=== PATIENT | male | born 1940 | race Caucasian/White ===

== ENCOUNTER 2018-06-19 11:42 | Inpatient (IN) ==
[~2018-06-19 11:42] MED LIST: Metoprolol Tartrate 25 MG Tablet PO SCH
[2018-06-19 12:21] LABS: Baso % (Auto) 0.6 % (0.0-2.0); Eos # (Auto) 0.2 th/mm3 (0.0-0.4); Eos % (Auto) 2.5 % (0.0-4.0); Hematocrit 42.1 % (39.0-51.0); Hemoglobin 13.9 gm/dL (13.0-17.0); Lymph % (Auto) 25.3 % (9.0-44.0); Mean Corpuscular HGB Conc 33.1 % (32.0-36.0); Mean Corpuscular Hemoglobin 30.1 pg (27.0-34.0); Mean Corpuscular Volume 90.9 fL (80.0-100.0); Mean Platelet Volume 8.9 fL (7.0-11.0); Mono # (Auto) 0.9 th/mm3 (0.0-0.9); Mono % (Auto) 11.6 % (0.0-8.0); Neut # (Auto) 4.7 th/mm3 (1.8-7.7); Platelet Count 235 th/mm3 (150-450); Red Blood Count 4.63 mil/mm3 (4.50-5.90); Red Cell Distribution Width 13.7 % (11.6-17.2); White Blood Count 7.8 th/mm3 (4.0-11.0)
[2018-06-19] MEDS ORDERED: Sod Chloride 0.9% Inj 1,000 ML IV.SIG SCH (12:30)
[2018-06-19 12:32] LABS: Activated Partial Thrombo Time 24.8 sec (24.3-30.1); Prothrombin Time 10.5 sec (9.8-11.6)
[2018-06-19 12:37] LABS: Calcium 8.9 mg/dL (8.5-10.1); Carbon Dioxide 28.1 meq/L (21.0-32.0); Potassium 4.3 meq/L (3.5-5.1)
[2018-06-19] MEDS ORDERED: fentaNYL Citrate Inj 100 MCG/2 ML Ampul ONE (13:31)
[2018-06-19] MEDS ORDERED: Heparin 10,000 UNITS/10 ML Vial (for IV use) ONE (13:32)
[2018-06-19] MEDS ORDERED: Heparin/NS PF Inj 1,000 ML ONE (13:39)
--- NOTE | 2018-06-19 14:32 | CATHPROC ---
Patient Name: Michael Alva Study #: [id number] Initial MD: Robson Self Date of : 1940 Study Date: 06/19/2018 Cardiac Catheterization Report 06/19/2018 2:31:53 PM Financial #: [id number] 1 of 10 Patient Name: Michael Alva Study #: [id number] Initial MD: Robson Self Date of : 1940 Study Date: 06/19/2018 Entire Case Report Patient Information Patient Name Michael Alva Date of 1940 Age 77 years Financial # [id number] Gender M AlternateID Lab Number 5 Room Number DC07 Height (in) 67.0 Height (cm) 170.2 BSA 1.88 Weight (lbs) 167.4 Weight (kg) 76.1 Patient Address/Phone Number Home Address [facility] [phone] [facility] [phone] Study Information Study Number Admission Scheduled Start Study Start [id number] Jun 19 2018 11:42AM 06/19/2018 Jun 19 2018 1:26PM [place] [facility] Cardiac Catheterization Admit Source Facility Department [facility] - Manager Community Physician and Clinical Staff Initial Robson Buckley Mental Health Clinician Ana Cristina Cueto,RN Mental Health Clinician Andrés Zavala,RN Recorder Angeline Gutierrez,KIMBERLY Recorder Merna Ocampo,RT(R) Scrub Boni Dominguez,RT(R) Procedures Performed Procedure Location (Site) Vessel Name Coronary Angiograms LCA Left Coronary Coronary Angiograms RCA Right Coronary Wire insertion Radial (right) Radial Art. 06/19/2018 2:31:53 PM Financial #: [id number] 2 of 10 Patient Name: Michael Alva Study #: [id number] Initial MD: Robson Self Date of : 1940 Study Date: 06/19/2018 Equipment Time Tenter Description Size Mfg Part Number Used/Scraped TRANSDUCER, TRUWAVE [id number] 13:46 ROACH CHACON * Used W/PARAMJIT *[id number] 14:09 [employer] AR MOD CATHETER FR 5 [id number] Used TIG 4.0 GUIDE CATHETER [id number] 13:57 [employer] FR 6 Used CONVEY *[id number] 534-545T *8364148 534-518T *1545349 534-542T *[id number] 744721 13:46 MALLINCKRODT SYRINGE, ANGIOMAT 150ML 150ML *[id number]/833523 Used 2SUB MEDICAL CONCEPT DRAPE, RADIAL FEMORAL FULL 13:46 * D2355 *4541387 Used DEVELOPMENT BODY [id number] 13:46 [employer] BLANKET,WARM AIR CCL * Used *[id number] 13:46 [employer] PACK, CCL CUSTOM * Used *3131195 13:46 [employer] SUPPORT, ARTERIAL ADULT 65269 *7196554 Used [id number] 13:46 MEDLINE PACER PEN, SKIN DUAL W/ RULER * Used *[id number] [id number] 13:46 MEDLINE PACER PEN, SKIN DUAL W/ RULER * Used *6728694 14:06 [employer] JR 5.0 DXTERITY CATHETER FR 5 [id number] Used BAND, RADIAL COMPRESSION TR [id number] 14:17 [employer] MEDICAL 24CM Used SHORT 24 *[id number] SHEATH, FR6 RADIAL PRELUDE 13:46 [employer] MEDICAL FR 6 [id number] Used EASE 11CM [id number] 13:46 [employer] MEDICAL WIRE, EXCHANGE 260CM 3MMJ 260CM Used *[id number] 13:46 [employer] MANIFOLD, 4 PORT * Used *5051734 13:46 [employer] OMNIPAQUE, 350 MG, 150ML 150ML [id number] Used WIRE, ANGLE GLIDE STIFF .035 [id number] 13:58 [employer]/SHELLY 260CM Used 260CM *[id number] WIRE, ANGLE GLIDE STIFF .035 [id number] 13:59 [employer]SHELLY 260CM Used 260CM *[id number] Equipment Model, Serial, Lot Number and Expiration Data Description Model Number Serial Number Lot Number Expiration Date AR MOD CATHETER [id number] 01-23-2020 06/19/2018 2:31:53 PM Financial #: [id number] Patient Name: Michael Alva Study #: [id number] Initial MD: Robson Self Date of : 1940 Study Date: 06/19/2018 Insurance Information Insurance Payor Private Health Insurance Third Republican Third Republican Number [facility] FHCMCRH[facility] History: Current Medications Medication Dosage/Unit Route Frequency Last Date/Time Taken ASA 81 mg Oral Daily 06/18/2018 CARVEDILOL 3.125 mg Oral Daily 06/18/2018 LIPITOR 40 mg Oral Daily 06/18/2018 History: Allergies Allergy Reaction temazepam Hallucinations History: Risk Factors Dyslipidemia Previous NM Previous Heart Failure Yes Yes Yes Prior PCI Prior PCIDate Yes 12/17/2013 Diabetes Yes Labs Hgb (g/dl) Hct (%) WBC (l/cumm) Platelets (thousands) 11.60-17.00 35.00-51.00 4.00-11.00 150.00-450.00 13.9 42.1 7.8 235 Glucose (mg/dl) BUN (mg/dl) Creatinine (mg/dl) BUN:Creatinine (1:x) 74.00-106.00 7.00-18.00 0.50-1.30 10.00-20.00 132 25 1.1 22.7 Na (meq/l) K (meq/l) 136.00-145.00 3.50-5.10 139 4.3 INR (PTT:PT) 0.90-1.10 1 Medication 06/19/2018 2:31:53 PM Financial #: [id number] 4 of 10 Patient Name: Michael Alva Study #: [id number] Initial MD: Robson Self Date of : 1940 Study Date: 06/19/20 18 Medication Total Dose (Bolus/Oral) Medication Total Dosage/Unit 1% XYLOCAINE 20 mL FENTANYL 50 mcg RADIAL COCKTAIL 5 mL (Bolus) Medications (Bolus/Oral) Medication Time Given Dosage/Unit Administered By Reason FENTANYL 06/19/2018 1:52:26 PM 50 mcg Andrés Zavala As per physicians fabrizio bal order 50 mcg FENTANYL given in lab by Andrés Zavala, RN in Left Forearm via Peripheral IV. Ordered by Robson Self. Reason: As per physicians verbal order. 1% XYLOCAINE 06/19/2018 1:54:04 PM 20 mL Robson Self 20 mL 1% XYLOCAINE given in lab by Robson Self in Right Radial via Subcutaneous. Ordered by Chris Self. Ntg 200mcg Verapamil 2.5mg Heparin RADIAL COCKTAIL 06/19/2018 1:55:28 PM 5 mL (Bolus) Robson Self 2000U 5 mL (Bolus) RADIAL COCKTAIL given in lab by Robson Self via Radial. Using [Solution Name]. Ordered by Robson Self. Reason: Ntg 200mcg Verapamil 2.5mg Heparin 2000U. Medication (Drip) Medication Time Given Dosage/Unit Concentration/Unit Diluent (ml) Solution IV Solutions 06/19/2018 1:26:51 PM 0 mL (IV) NaCl .9 IV Solutions given in lab by Andrés Zavala RN in Left Forearm via Peripheral IV. Pump/Drip Flow = 30 ml/hr using NaCl .9. Ordered by Robson Self. Reason: As per physicians verbal order. 06/19/2018 2:31:53 PM Financial #: [id number] 5 of 10 Patient Name: Michael Alva Study #: [id number] Initial MD: Robson Self Date of : 1940 Study Date: 06/19/2018 Initial Case Assessment Cardiovascular Rhythm Chest Pain NSR 0 Edema Present Skin color Skin None Normal Warm Dry Circulatory - Right Pulses Dorsalis Pedis Femoral Radial 3 3 3 Scale (0,1,2,3,4,d) Circulatory - Left Pulses Dorsalis Pedis Femoral Radial 3 3 3 Scale (0,1,2,3,4,d) Circulatory - Lower Extremities Color Lower Right Color Lower Left Normal Normal Neurological State Oriented to time-place- Alert Moves all extremities person Respiration - General Respiration Rate (B/min) 16 06/19/2018 2:31:53 PM Financial #: [id number] 6 of 10 Patient Name: Michael Alva Study #: [id number] Initial MD: Robson Self Date of : 1940 Study Date: 06/19/2018 Vitals Summary Pain Time HR NIBP SpO2 Resp Temp EtCO2 Apnea Deepak Chang Comment Level 13:31:46 70 145/81 97.0 0 13:36:45 73 144/79 97.0 2 13:41:44 67 134/75 98.0 24 13:46:45 68 135/68 98.0 0 13:51:44 66 137/68 98.0 7 13:56:43 78 104/66 98.0 0 14:01:38 73 117/64 94.0 11 14:06:41 70 124/67 97.0 14 14:11:42 68 127/66 97.0 23 14:16:45 76 120/65 97.0 13 14:21:44 66 102/61 97.0 13 Chronological Log Time Study Chronological Log 13:24:20 Patient arrived via Bed. 13:24:24 Patient Name, D.O.B, / Armband Verified By R.N. 13:24:28 Consent signed by the physician and the patient and verified by the Manager Community staff. 13:25:32 Pre-op and post- op instructions given; patient acknowledges understanding of instructions. 13:25:36 Verbal Stimulation=2 Physical Stimulation=2 Airway=2 Respiration=2 TOTAL=8. (0=absent, 1=li mited, 2=present) 13:26:42 Patient has been NPO for More than 6Hrs. 13:26:44 Skin Breakdown- none 13:26:45 Patient Warmer Placed on the Table. 13:26:46 Zenaida Prominences Protected 13:26:49 A # 20 IV was noted in the Antecubital (left). Grade = 0 IV Solutions given in lab by Andrés Zavala, RN in Left Forearm via Peripheral IV. Pump/Drip Anupam w = 30 ml/hr using NaCl 13:26:51 .9. Ordered by Robson Self. Reason: As per physicians verbal order. 13:30:35 History and physical on the chart. Vitals capture started with the following parameters, Patient=Adult, Interval=5 min, Initial Pr uqvfpu=799 mmHg, 13:31:02 Deflation Rate=5 mmHg, Cuff placed on Left Arm Assessment: Initial Case, Rhythm=NSR, Chest Pain=0, Edema=None, Color=Normal, Skin = Warm, Dry Right Pulses: Jose Ped=3, Femoral=3, Radial=3 Left Pulses: Jose Ped=3, Femoral=3, Radial=3 13:31:08 Lower Right Extremities: Color=Normal Lower Left Extremities: Color=Normal Neurological: State=Alert, Ox3, ROGERS Respiration: Resp=16 B/min 13:31:46 HR=70 bpm, BZCF=889/81 mmhg, SpO2=97.0 %, Resp=0 B/min 13:33:16 Allens test performed on the right radial and ulnar artery. 06/19/2018 2:31:53 PM Financial #: [id number] Patient Name: Michael Alva Study #: [id number] Initial MD: Robson Self Date of : 1940 Study Date: 06/19/2018 13:34:00 Reference ECG taken 13:36:34 Right Radial and groin(s) prepped with 2% chlorhexidine. 13:36:45 HR=73 bpm, JPYU=489/79 mmhg, SpO2=97.0 %, Resp=2 B/min 13:39:25 A sterile drape was appplied after a 3 min prep drying time. 13:41:44 HR=67 bpm, CWYQ=069/75 mmhg, SpO2=98.0 %, Resp=24 B/min 13:43:01 paged 13:43:58 Pressure channel 2 zeroed. 13:44:33 MD responded 13:46:45 HR=68 bpm, UVKU=964/68 mmhg, SpO2=98.0 %, Resp=0 B/min 13:49:51 MD arrived. 13:50:03 Immediate Presedation assesment performed by physician. 13:51:44 HR=66 bpm, MYUY=746/68 mmhg, SpO2=98.0 %, Resp=7 B/min 50 mcg FENTANYL given in lab by Andrés Zavala RN in Left Forearm via Peripheral IV. Ordered by Robson Self. 13:52:26 Reason: As per physicians verbal order. Time Out. Correct patient, correct procedure, correct physician, labs, allergies, and equipment verified with cleaner laboratory equipment 13:53:42 team present. Fire risk assesment completed (see hard stop sheet for coding). Time Out Conc urred by and individual staff in procedure. 13:54:04 Case Start 13:54:04 20 mL 1% XYLOCAINE given in lab by Robson Self in Right Radial via Subcutaneous. Ordered b Robson Del Valle. 13:55:17 Access site was Right Radial Artery . A SHEATH, FR6 RADIAL PRELUDE EASE 11CM FR 6 was advanced into the Radial (right) using the July fied Seldinger 13:55:26 technique. 5 mL (Bolus) RADIAL COCKTAIL given in lab by Robson Self via Radial. Using [Solution Name]. Or dered by Aramis 13:55:28 Robson. Reason: Ntg 200mcg Verapamil 2.5mg Heparin 2000U. 13:55:34 A WIRE, EXCHANGE 260CM 3MMJ 260CM was inserted via Radial (right). A TIG 4.0 GUIDE CATHETER CONVEY FR 6 was advanced over a wire. OMNIPAQUE, 350 MG, 150ML 150ML w as used 13:56:22 for injections. 13:56:43 HR=78 bpm, DDGB=280/66 mmhg, SpO2=98.0 %, Resp=0 B/min 13:57:26 260 J Wire removed 13:58:22 A WIRE, ANGLE GLIDE STIFF .035 260CM 260CM was inserted via Radial (right). 13:58:39 Wire removed 13:59:44 The LCA was injected and visualized at various angles. OMNIPAQUE, 350 MG, 150ML 150ML used . 14:01:38 HR=73 bpm, XAHI=425/64 mmhg, SpO2=94.0 %, Resp=11 B/min 14:02:02 A WIRE, EXCHANGE 260CM 3MMJ 260CM was inserted via Radial (right). 14:04:38 The LCA was injected and visualized at various angles. OMNIPAQUE, 350 MG, 150ML 150ML used . 14:06:41 HR=70 bpm, MGXT=657/67 mmhg, SpO2=97.0 %, Resp=14 B/min After removing the current catheter a JR 5.0 DXTERITY CATHETER FR 5 was advanced over a WIRE, E XCHANGE 260CM 14:06:59 3MMJ 260CM. 14:07:27 Wire removed After removing the current catheter a AR MOD CATHETER FR 5 was advanced over a WIRE, EXCHANGE 2 60CM 3MMJ 14:10:06 260CM. 14:11:42 HR=68 bpm, MSMD=362/66 mmhg, SpO2=97.0 %, Resp=23 B/min 06/19/2018 2:31:53 PM Financial #: [id number] 8 of 10 Patient Name: Michael Alva Study #: [id number] Initial MD: Robson Self Date of : 1940 Study Date: 06/19/2018 After removing the current catheter a AL 1 INFINITI CATHETER FR 5 was advanced over a WIRE, EX CHANGE 260CM 14:12:00 3MMJ 260CM. 14:13:39 The RCA was injected and visualized at various angles. OMNIPAQUE, 350 MG, 150ML 150ML use d. After removing the current catheter a MPA-2 INFINITI CATHETER FR 5 was advanced over a WIRE, E XCHANGE 260CM 14:13:54 3MMJ 260CM. Recorded Pressure: LV, HR=70, Condition=Condition 1 14:15:50 (Left Ventricle) LV 146/11 14:16:45 HR=76 bpm, EANT=398/65 mmhg, SpO2=97.0 %, Resp=13 B/min 14:16:47 Catheter(s) removed without difficulty 14:16:53 Case End (Physician broke scrub) 14:16:54 Holding Area notified of successful intervention. 14:16:55 Bedside Report will be given. 14:19:31 Sheath removed; pressure applied to access site. Radial Compression Device Used. 10 mLs of air placed in BAND, RADIAL COMPRESSION TR SHORT 24 2 4CM. Affected 14:19:32 hand 97 % O2 saturation. 14:21:44 HR=66 bpm, UNON=369/61 mmhg, SpO2=97.0 %, Resp=13 B/min 14:22:59 No case complications noted. 14:23:00 Cine recording checked. 14:24:17 Vitals capture stopped. 14:26:12 Patient moved to [facility] transported back to DOCU in stable condition with RN and t each accompanying. Recorded Pressures: Condition 1 Time Chamber Pressure Manual Override (*) 14:15:50 LV 146/11/21 s/bd/ed End Study - Contrast Media Used In Study Contrast Total Opened (mL) Total Used (mL) Total Wasted (mL) Omnipaque 150 75 75 End Study - Maximum Contrast Load Max Contrast Load (mL) 345.9 End Study - Radiation Exposure Fluoro Time (minutes) 8.5 06/19/2018 2:31:53 PM Financial #: [id number] Patient Name: Michael Alva Study #: [id number] Initial MD: Robson Self Date of : 1940 Study Date: 06/19/2018 End Study - Patient Disposition Complications Transferred To Interventional Outcome No Telemetry Bed No attempt made 06/19/2018 2:31:53 PM Financial #: [id number]
[2018-06-19] MEDS: Sod Chloride 0.9% Inj 1,000 ML IV.CONT SCH (14:45)
[2018-06-19] MEDS ORDERED: Iohexol 350 MG/ML 100 ML Vial (for Cath Lab) IV.SIG ONE (14:53)
[2018-06-19] MEDS ORDERED: Dextrose 50% in Water 50 ML Vial IV.PUSH PRN (16:47)
[2018-06-19] MEDS ORDERED: Insulin Regular (For Infusion) 100 UNIT in Sodium Chlor 0.9% Inj 99 ML IV.CONT PRN (16:47)
[2018-06-19] MEDS ORDERED: Sodium Chlor 0.9% Inj 77.5 ML, Papaverine Inj 60 MG, Nitroglycerin Inj 100 MCG, dilTIAZ... IRRIGATION SCH ×3 (17:00)
[2018-06-19] MEDS ORDERED: Sodium Chloride 0.9% Irr Bot 500 ML, ceFAZolin Inj 500 MG IRRIGATION SCH ×2 (17:00)
[2018-06-19] MEDS ORDERED: ceFAZolin Inj 2,000 MG in Sodium Chlor 0.9% Inj 80 ML IV.SIG SCH (17:00)
[2018-06-19] MEDS ORDERED: Chlorhexidine 4% Topical 120 APPLIC/120 ML Bottle TOPICAL SCH (17:00)
[2018-06-19] MEDS: Mupirocin 2% Nasal Oint Topical Syringe EACH NARE SCH (20:32)
[2018-06-20] MEDS: Sod Chloride 0.9% Inj 1,000 ML IV.CONT SCH ×3 (03:52→20:30)
[2018-06-20] MEDS: Glimepiride 2 MG Tablet PO SCH (06:42)
[2018-06-20] MEDS: Mupirocin 2% Nasal Oint Topical Syringe EACH NARE SCH ×2 (08:20→20:32)
[2018-06-20 09:34] LABS: Bilirubin,Urine Negative (Negative); Clarity,Urine Clear (Clear); Color,Urine Yellow (Yellw/Straw); Glucose,Urine (UA) 150 mg/dL (Negative); Leukocyte Esterase,Urine Negative (Negative); Mucus,Urine Few /lpf (Occasional); Nitrite,Urine Negative (Negative)
--- NOTE | 2018-06-20 09:36 | P.PNCA ---
Subjective Interval history: Denies angina, dyspnea, right wrist pain. Slept fairly well. Physical Exam Vital signs: Vital Signs 06/19/18 12:14 06/19/18 15:11 06/19/18 16:00 Temperature 97.7 F 97.3 F L Pulse Rate 73 60 70 Respiratory Rate 18 20 Blood Pressure 124/89 141/64 H Pulse Oximetry 98 98 06/19/18 17:00 06/19/18 18:00 06/19/18 20:25 Temperature Pulse Rate 64 63 68 Respiratory Rate Blood Pressure Pulse Oximetry 06/19/18 21:00 06/19/18 22:00 06/19/18 23:00 Temperature 97.7 F Pulse Rate 68 62 71 Respiratory Rate 22 Blood Pressure 118/61 Pulse Oximetry 97 06/20/18 00:00 06/20/18 01:00 06/20/18 02:00 Temperature 98.0 F Pulse Rate 68 70 74 Respiratory Rate 22 Blood Pressure 117/62 Pulse Oximetry 97 06/20/18 03:00 06/20/18 04:00 06/20/18 05:00 Temperature 98.0 F Pulse Rate 72 68 76 Respiratory Rate 22 Blood Pressure 107/54 L Pulse Oximetry 96 06/20/18 06:00 06/20/18 07:00 06/20/18 07:26 Temperature 98.2 F Pulse Rate 70 68 72 Respiratory Rate 16 Blood Pressure 101/58 L Pulse Oximetry 94 L 06/20/18 08:00 06/20/18 09:00 Temperature Pulse Rate 78 72 Respiratory Rate Blood Pressure Pulse Oximetry Intake & Output 06/19/18 06/20/18 06/20/18 18:59 06:59 18:59 Intake Total 240 / 240 1240 / 1240 Output Total 300 / 300 Balance 240 / 240 940 / 940 Weight 76.1 kg Intake: IV 1000 / 1000 NS Inj 1,000 ML @ 100 mls/hr IV 1000 / 1000 .CONT .Q10H [facility] Rx#:[id number] Oral 240 / 240 240 / 240 Output: Urine 300 / 300 Other: Date of Last Bowel Movement 06/19/18 Weight On Admission 76.1 kg - Constitutional no acute distress - Routine Neck Exam Absent: JVD - Routine Respiratory Exam Present: CTA bilaterally - Routine Cardiovascular Exam Present: RRR, S1, S2. Absent: murmur, gallop - Routine Abdominal Exam Present: soft, normoactive bowel sounds. Absent: tenderness, organomegaly - Routine Extremities Exam Absent: cyanosis, clubbing, edema Assessment and Plan - Assessment (1) Coronary artery disease Code(s): I25.10 - Atherosclerotic heart disease of [place] coronary artery without angina pectoris Status: Chronic Plan: Stable overnight. No further angina. Severe 2 vessel CAD by cath. For CABG this Monday. Continue current medical regimen. EF low normal 50% by cath. (2) Hyperlipidemia Code(s): E78.5 - Hyperlipidemia, unspecified Status: Chronic Plan: Continues on statin therapy. Follows with Dr. Roth as outpatient. - Plan Code Status: full code Discussed Condition With: patient and (1) Coronary artery disease Qualifiers: Coronary Disease-Associated Artery/Lesion type: [place] artery [place] vs. transplanted heart: [place] heart Associated angina: with unstable angina Qualified Code(s): I25.110 - Atherosclerotic heart disease of [place] coronary artery with unstable angina pectoris (2) Hyperlipidemia Qualifiers: Hyperlipidemia type: unspecified Qualified Code(s): E78.5 - Hyperlipidemia, unspecified
[2018-06-20] MEDS ORDERED: Dextrose 50% in Water 50 ML Vial IV.PUSH PRN (11:37)
[2018-06-20] MEDS: Insulin NovoLOG Aspart Correctional Sugar Inj SQ SCH ×3 (12:50→20:39)
--- NOTE | 2018-06-20 16:11 | ECHRPT ---
Indication: CHEST PAIN CONCLUSIONS The left ventricular systolic function is mildly reduced with an estimated ejection fraction in the range of 45- 50%. Mild concentric left ventricular hypertrophy. Doppler parameters are consistent with impaired left ventricular relaxtion (grade 1 diastolic dysfun ction). Ascending aorta noted to have significant calcification. Mild mitral valve regurgitation. Probable mild aortic valve stenosis (peak grad 30, mean grad 16, max velocity 2.75, TONYA measured bel ow 1, but most likely due to LVOT measured incorrectly). BP: / HR: Rhythm: MEASUREMENTS (Male / Female) Normal Values Technical Quality: 2D ECHO LV Diastolic Diameter PLAX 4.3 cm 4.2 - 5.9 / 3.9 - 5.3 cm LV Systolic Diameter PLAX 3.4 cm IVS Diastolic Thickness 1.3 cm 0.6 - 1.0 / 0.6 - 0.9 cm LVPW Diastolic Thickness 1.1 cm 0.6 - 1.0 / 0.6 - 0.9 cm LV Relative Wall Thickness 0.6 RV Internal Dim ED PLAX 2.6 cm LVOT Diameter 1.7 cm Aortic Root Diameter 3.1 cm LA Systolic Diameter LX 3.2 cm 3.0 - 4.0 / 2.7 - 3.8 cm LV Ejection Fraction MOD 4C 47.2 % LV Ejection Fraction 4C AL 47.8 % M-MODE Aortic Root Diameter MM 3.6 cm LA Systolic Diameter MM 4.6 cm LA Ao Ratio MM 1.3 AV Cusp Separation MM 1.3 cm DOPPLER AV Peak Velocity 288.5 cm/s AV Peak Gradient 33.3 mmHg AV Mean Gradient 18.5 mmHg AV Velocity Time Integral 61.0 cm AI Peak Velocity 317.0 cm/s AI Peak Gradient 40.2 mmHg AI Pressure Half Time 240.0 ms LVOT Peak Velocity 100.0 cm/s LVOT Peak Gradient 4.0 mmHg LVOT Velocity Time Integral 23.9 cm AV Area Cont Eq vti 0.9 cm AV Area Cont Eq pk 0.8 cm Mitral E Point Velocity 90.3 cm/s Mitral A Point Velocity 126.0 cm/s Mitral E to A Ratio 0.7 LV E' Lateral Velocity 6.1 cm/s Mitral E to LV E' Lateral Ratio 14.9 LV E' Septal Velocity 5.0 cm/s Mitral E to LV E' Septal Ratio 18.2 TR Peak Velocity 198.0 cm/s TR Peak Gradient 15.7 mmHg Right Atrial Pressure 10.0 mmHg Pulmonary Artery Systolic Pressu 25.7 mmHg Right Ventricular Systolic Press 25.7 mmHg PV Peak Velocity 80.5 cm/s PV Peak Gradient 2.6 mmHg FINDINGS LEFT VENTRICLE Normal left ventricular size. Mild concentric left ventricular hypertrophy. The left ventricular systolic function is mildly reduced with an estimated ejection fraction in the range of 45- 50%. There is global left ventricular dysfunction. Doppler parameters are consistent with impaired left ventricular relaxtion (grade 1 diastolic dysfun ction). RIGHT VENTRICLE Normal right ventricular size and systolic function. LEFT ATRIUM The left atrial size is mildly dilated. RIGHT ATRIUM The right atrial size is normal. ATRIAL SEPTUM Normal atrial septal thickness without atrial level shunting by limited color doppler interrogation. AORTA The aortic root and proximal ascending aorta are normal in size on limited imaging. Ascending aorta noted to have significant calcification. MITRAL VALVE Calcification of both mitral valve leaflets. Mild mitral valve regurgitation. Moderate mitral annular calcification. AORTIC VALVE Diffuse calcification of the aortic valve. Trace aortic valve regurgitation. Probable mild aortic valve stenosis (peak grad 30, mean grad 16, max velocity 2.75, TONYA measured bel ow 1, but most likely due to LVOT measured incorrectly). TRICUSPID VALVE There is trace tricuspid valve regurgitation. The estimated pulmonary arterial pressure is 26 mmHg. PULMONARY VALVE Mild pulmonary valve regurgitation. VESSELS The inferior vena cava is normal in size. PERICARDIUM No pericardial effusion. Izt Blackburn DO (Electronically Signed) Final Date:20 June 2018 16:10
[2018-06-20] MEDS: Polyethylene Glycol 3350 17 GM Packet PO SCH ×2 (16:48→17:29)
--- NOTE | 2018-06-20 21:52 | ECG ---
Date Performed: 06/19/2018 Time Performed: 12:18:12 PTAGE: 77 years EKG: Sinus rhythm . Left axis deviation Inferior infarct - age undetermined Abnormal ECG PREVIOUS TRACING : 12/03/2013 05.05 Since the previous tracing, no significant change noted DOCTOR: Ric Diallo Interpretating Date/Time 06/20/2018 21:50:04
[2018-06-21] MEDS: Sod Chloride 0.9% Inj 1,000 ML IV.CONT SCH ×2 (07:22→16:28)
[2018-06-21] MEDS: Insulin NovoLOG Aspart Correctional Sugar Inj SQ SCH ×4 (07:57→21:02)
[2018-06-21] MEDS: Glimepiride 2 MG Tablet PO SCH (08:18)
[2018-06-21] MEDS: Polyethylene Glycol 3350 17 GM Packet PO SCH (08:18)
[2018-06-21] MEDS: Mupirocin 2% Nasal Oint Topical Syringe EACH NARE SCH ×2 (08:18→20:57)
--- NOTE | 2018-06-21 08:29 | P.PNCA ---
Subjective Interval history: No angina, dyspnea, dizziness, palpitations. Slept well. Physical Exam Vital signs: Vital Signs 06/20/18 09:00 06/20/18 10:00 06/20/18 11:00 Temperature 98.3 F Pulse Rate 72 70 67 Respiratory Rate 16 Blood Pressure 120/64 Pulse Oximetry 96 06/20/18 12:00 06/20/18 13:00 06/20/18 14:04 Temperature Pulse Rate 66 66 67 Respiratory Rate Blood Pressure Pulse Oximetry 06/20/18 14:53 06/20/18 15:00 06/20/18 16:00 Temperature 97.8 F Pulse Rate 63 60 62 Respiratory Rate 16 Blood Pressure 111/61 Pulse Oximetry 97 06/20/18 17:00 06/20/18 18:01 06/20/18 19:00 Temperature 97.6 F Pulse Rate 62 75 66 Respiratory Rate 18 Blood Pressure 135/73 Pulse Oximetry 96 06/20/18 20:00 06/20/18 21:00 06/20/18 22:00 Temperature Pulse Rate 70 62 78 Respiratory Rate Blood Pressure Pulse Oximetry 06/20/18 23:00 06/21/18 00:00 06/21/18 01:00 Temperature Pulse Rate 66 58 L 66 Respiratory Rate 18 Blood Pressure Pulse Oximetry 06/21/18 02:00 06/21/18 03:00 06/21/18 04:00 Temperature 97.9 F Pulse Rate 71 65 67 Respiratory Rate 20 Blood Pressure 123/71 Pulse Oximetry 96 06/21/18 05:00 06/21/18 06:00 06/21/18 07:48 Temperature 98.4 F Pulse Rate 63 66 67 Respiratory Rate 18 Blood Pressure 112/65 Pulse Oximetry 95 Intake & Output 06/20/18 06/21/18 06/21/18 18:59 06:59 18:59 Intake Total 942 / 942 480 / 480 Output Total 800 / 800 Balance 942 / 942 -320 / -320 Intake: Oral 942 / 942 480 / 480 Output: Urine 800 / 800 Other: # Voids 4 3 Date of Last Bowel Movement 06/20/18 06/20/18 06/20/18 # Bowel Movements 1 0 - Constitutional no acute distress - Routine Neck Exam Absent: JVD - Routine Respiratory Exam Present: CTA bilaterally - Routine Cardiovascular Exam Present: RRR, S1, S2. Absent: murmur, gallop - Routine Abdominal Exam Present: soft, normoactive bowel sounds. Absent: tenderness, organomegaly - Routine Extremities Exam Absent: cyanosis, clubbing, edema Assessment and Plan - Assessment (1) Coronary artery disease Code(s): I25.10 - Atherosclerotic heart disease of [place] coronary artery without angina pectoris Status: Chronic Plan: Stable since admission. Severe 2 vessel CAD by cath. For CABG in am. Continue current medical regimen. EF low normal 50% by cath. (2) Hyperlipidemia Code(s): E78.5 - Hyperlipidemia, unspecified Status: Chronic Plan: Continues on statin therapy. Follows with Dr. Roth as outpatient. - Plan Code Status: full code Discussed Condition With: patient and (1) Coronary artery disease Qualifiers: Coronary Disease-Associated Artery/Lesion type: [place] artery [place] vs. transplanted heart: [place] heart Associated angina: with unstable angina Qualified Code(s): I25.110 - Atherosclerotic heart disease of [place] coronary artery with unstable angina pectoris (2) Hyperlipidemia Qualifiers: Hyperlipidemia type: unspecified Qualified Code(s): E78.5 - Hyperlipidemia, unspecified
--- NOTE | 2018-06-21 15:06 | P.PNCV ---
- Note Subjective/Hospital Course: sts data discussed with pt RISK SCORES About the STS Risk Calculator Procedure: CAB Only Risk of Mortality: 1.602% Morbidity or Mortality: 12.465% Long Length of Stay: 5.204% Short Length of Stay: 43.848% Permanent Stroke: 0.997% Prolonged Ventilation: 7.609% DSW Infection: 0.396% Renal Failure: 3.329% Reoperation: 5.213% 06/21 pt doing well for surgery in am Objective: Vital Signs - 24 hr 06/20/18 16:00 06/20/18 17:00 06/20/18 18:01 Temperature Pulse Rate 62 62 75 Respiratory Rate Blood Pressure Pulse Oximetry 06/20/18 19:00 06/20/18 20:00 06/20/18 21:00 Temperature 97.6 F Pulse Rate 66 70 62 Respiratory Rate 18 Blood Pressure 135/73 Pulse Oximetry 96 06/20/18 22:00 06/20/18 23:00 06/21/18 00:00 Temperature Pulse Rate 78 66 58 L Respiratory Rate 18 Blood Pressure Pulse Oximetry 06/21/18 01:00 06/21/18 02:00 06/21/18 03:00 Temperature 97.9 F Pulse Rate 66 71 65 Respiratory Rate 20 Blood Pressure 123/71 Pulse Oximetry 96 06/21/18 04:00 06/21/18 05:00 06/21/18 06:00 Temperature Pulse Rate 67 63 66 Respiratory Rate Blood Pressure Pulse Oximetry 06/21/18 07:00 06/21/18 07:48 06/21/18 08:00 Temperature 98.4 F Pulse Rate 65 67 66 Respiratory Rate 18 Blood Pressure 112/65 Pulse Oximetry 95 06/21/18 09:00 06/21/18 10:00 06/21/18 11:00 Temperature Pulse Rate 62 62 62 Respiratory Rate Blood Pressure Pulse Oximetry 06/21/18 11:06 06/21/18 12:00 06/21/18 13:25 Temperature 98.1 F Pulse Rate 67 76 67 Respiratory Rate 18 Blood Pressure 101/61 Pulse Oximetry 97 GENERAL: SKIN: Warm and dry. HEAD: Normocephalic. EYES: No scleral icterus. No injection or drainage. NECK: Supple, trachea midline. No JVD or lymphadenopathy. CARDIOVASCULAR: Regular rate and rhythm without murmurs, gallops, or rubs. RESPIRATORY: Breath sounds equal bilaterally. No accessory muscle use. GASTROINTESTINAL: Abdomen soft, non-tender, nondistended. MUSCULOSKELETAL: No cyanosis, or edema. BACK: Nontender without obvious deformity. No CVA tenderness. Labs: Laboratory Results - last 12 hr 06/21/18 06/21/18 07:56 11:14 POC Glucose 148 H 198 H Result Diagrams: 06/19/18 12:07 06/19/18 12:07 Telemetry: NSR - Plan (1) Diabetes (1) Diabetes Qualifiers: Diabetes mellitus type: type 2
[2018-06-22] MEDS ORDERED: Chlorhexidine Gluconate 2% 1 Pack (2 Cloths) TOPICAL ONE (00:30)
[2018-06-22] MEDS ORDERED: Sodium Chlor 0.9% Inj 500 ML IV.CONT ONE (00:30)
[2018-06-22] MEDS: Sod Chloride 0.9% Inj 1,000 ML IV.CONT SCH ×3 (05:08→22:33)
[2018-06-22] MEDS: Glimepiride 2 MG Tablet PO SCH (07:55)
[2018-06-22] MEDS: Mupirocin 2% Nasal Oint Topical Syringe EACH NARE SCH ×2 (08:53→20:04)
[2018-06-22] MEDS: Polyethylene Glycol 3350 17 GM Packet PO SCH (08:55)
[2018-06-22] MEDS: Insulin NovoLOG Aspart Correctional Sugar Inj SQ SCH ×4 (09:03→22:28)
--- NOTE | 2018-06-22 11:11 | P.PNCV ---
- Note Subjective/Hospital Course: A 77-year-old male patient of Dr. Antwan Mann and also Dr. Self who is known to their [facility] with history of coronary artery disease. He has been experiencing some chest pain, midsternal, radiating to both arms off and on for the past month mainly with exertion, describes it as somewhat feeling like indigestion. He was seen in the office 06/12/2018, and then was brought in for elective cardiac catheterization. Cardiac catheterization showed an ejection fraction of 50%, 30% left main, proximal LAD 90%, the RCA 100%. We were consulted to evaluate for coronary artery bypass grafting. PAST MEDICAL HISTORY: Includes coronary artery disease, ischemic cardiomyopathy. Prior [place], diabetes mellitus type 2, hyperlipidemia. Apparently, he was a nonresponder to Plavix. History of pneumothorax at age 31. He had a chest tube placed back when he had the pneumothorax in 1971. He also has 2 cardiac stents. 06/21 pt doing well for surgery in am 06/22 no chest pain last night for surgery today Objective: Vital Signs - 24 hr 06/21/18 12:00 06/21/18 13:25 06/21/18 14:00 Temperature Pulse Rate 76 67 60 Respiratory Rate Blood Pressure Pulse Oximetry 06/21/18 15:00 06/21/18 15:21 06/21/18 16:18 Temperature 98.3 F Pulse Rate 60 63 67 Respiratory Rate 18 Blood Pressure 128/69 Pulse Oximetry 97 06/21/18 17:15 06/21/18 18:10 06/21/18 19:00 Temperature 97.9 F Pulse Rate 83 70 66 Respiratory Rate 20 Blood Pressure 130/72 Pulse Oximetry 97 06/21/18 20:00 06/21/18 21:00 06/21/18 22:00 Temperature Pulse Rate 66 62 76 Respiratory Rate Blood Pressure Pulse Oximetry 06/21/18 23:00 06/22/18 00:00 06/22/18 01:00 Temperature Pulse Rate 72 61 68 Respiratory Rate Blood Pressure Pulse Oximetry 06/22/18 02:00 06/22/18 03:00 06/22/18 04:00 Temperature 98 F Pulse Rate 62 67 70 Respiratory Rate 22 Blood Pressure 108/62 Pulse Oximetry 94 L 06/22/18 05:00 06/22/18 06:00 06/22/18 07:00 Temperature 98.2 F Pulse Rate 69 62 67 Respiratory Rate 16 Blood Pressure 105/62 Pulse Oximetry 93 L 06/22/18 10:45 Temperature 98.3 F Pulse Rate 66 Respiratory Rate 16 Blood Pressure 107/69 Pulse Oximetry 95 GENERAL: SKIN: Warm and dry. HEAD: Normocephalic. EYES: No scleral icterus. No injection or drainage. NECK: Supple, trachea midline. No JVD or lymphadenopathy. CARDIOVASCULAR: Regular rate and rhythm without murmurs, gallops, or rubs. RESPIRATORY: Breath sounds equal bilaterally. No accessory muscle use. GASTROINTESTINAL: Abdomen soft, non-tender, nondistended. MUSCULOSKELETAL: No cyanosis, or edema. BACK: Nontender without obvious deformity. No CVA tenderness. Labs: Laboratory Results - last 12 hr 06/19/18 06/22/18 06/22/18 16:01 04:40 08:31 POC Glucose 146 H Blood Type A Positive Antibody Screen Negative MTS Gel Crossmatch See Detail 06/22/18 06/22/18 08:31 09:03 POC Glucose 169 H Blood Type Antibody Screen MTS Gel Crossmatch See Detail Result Diagrams: 06/19/18 12:07 06/19/18 12:07 - Plan (1) Diabetes (2) Coronary artery disease (3) Hyperlipidemia (1) Diabetes Qualifiers: Diabetes mellitus type: type 2 (2) Coronary artery disease Qualifiers: Coronary Disease-Associated Artery/Lesion type: [place] artery [place] vs. transplanted heart: [place] heart Associated angina: with unstable angina Qualified Code(s): I25.110 - Atherosclerotic heart disease of [place] coronary artery with unstable angina pectoris (3) Hyperlipidemia Qualifiers: Hyperlipidemia type: unspecified Qualified Code(s): E78.5 - Hyperlipidemia, unspecified
[2018-06-22] MEDS ORDERED: Heparin - SQ 10,000 UNITS/ML Vial ONE (11:33)
[2018-06-22] MEDS ORDERED: MethylPREDNISolone Sod Succinate Inj 125 MG/2 ML Vial ONE (11:33)
[2018-06-22] MEDS ORDERED: Insulin Regular (For Infusion) 100 UNIT in Sodium Chlor 0.9% Inj 99 ML IV.CONT ONE (11:45)
[2018-06-22] MEDS ORDERED: Propofol Inj 500 MG/50 ML Vial IV.SIG ONE (12:58)
[2018-06-22] MEDS ORDERED: Sodium Chlor 0.9% Inj 100 ML IV.CONT ONE (12:58)
[2018-06-22] MEDS ORDERED: Sodium Chlor 0.9% Inj 250 ML IV.CONT ONE (12:58)
[2018-06-22] MEDS ORDERED: Cardioplegic Irr Soln 2,000 ML IRRIGATION ONE (13:02)
[2018-06-22] MEDS ORDERED: Albumin Human 25% Inj 50 ML IV.SIG ONE (13:02)
[2018-06-22] MEDS ORDERED: Calcium Chloride Inj 1 GM/10 ML Syringe ONE (13:03)
[2018-06-22] MEDS ORDERED: Heparin 10,000 UNITS/10 ML Vial (for IV use) ONE (13:04)
[2018-06-22] MEDS ORDERED: Potassium Chlor 40 mEq Premix 80 MEQ/200 ML PIGGYBACK ONE (13:04)
--- NOTE | 2018-06-22 13:22 | P.DCO ---
- Diagnosis (1) Coronary artery disease (2) Hyperlipidemia (3) Diabetes - Home Health Nursing Order: Medical education, Signs/symptoms of disease process, Diabetic education , Wound care and dressing changes, Nursing assessment with vital signs Instructions: Heart and Vascular Surgery patients *Special attention to sternal dressing Mandatory frequency Assess and evaluation, 4 days in a row The next week 3X week 2 times a week for 4 weeks 1 time a week for 5 weeks Schedule Heart and Vascular patients for full 60 day certification period Initial visit Review Open Heart Surgery Discharge Instructions (Sternal precautions, Activity, Elastic hose, Incision care, Driving, Incentive spirometry, Smoking, [place], Work and other) Need Betadine to paint incision Medication reconciliation Importance of follow up care/ check on appointments Make calendar record temperature daily When to call [facility] at Home nurse, review instructions, phone list Incentive Spirometry, demonstration Visit 1- Begin discharge instruction for patient family and/ or caregiver using teach back method- Signs and symptoms of infection Disease characteristics Medicines and side effects Foods and nutrition/ appetite Infection control/ hand washing/ hygiene Visit 2- Continue teaching Discharge instructions- include additional information on smoking cessation , sternal dressing (sternal vac) Visit 3- Continue teaching- Cough and deep breathing, incision monitoring. Choose my plate Visit 4- Continue teaching- Discuss limitations Discuss how they are feeling Discuss progress toward goals Remaining visits- continue teaching and monitoring For any questions please call : Monday 8am-5pm Heart & Vascular Surgery Office ( Dr. Alcocer & Dr. Nair), After Hours / Nights (5pm -8am) Weekends and Holidays Please call [facility] Cardiac Intermediate Care Unit (CIC) Charge Nurse PREVENA Single Use Negative Wound Therapy System Caregiver Instruction Sheet 1. A Prevena dressing system was applied to the chest incision during surgery , to promote wound healing. It works via a suction device (negative pressure wound therapy) to remove low to moderate levels of exudate (drainage) and infectious materials. We recommend that the device stay in place for up to seven days, from day of surgery. 2. Day of Surgery___/ Day of Removal 06/29/18 3. The dressing should only be removed by a health pharmacy care coordinator. Please arrange removal of device to coincide with Home Health visit and or with Nursing staff at Rehab 4. If skin reddening or irritation of skin occurs, or excessive drainage, please notify the Cardiovascular Surgeons office at [phone]. 5. Light showering is permissible; however the pump should be disconnected and placed in safe location, where it will not get wet. The dressing should not be exposed to direct spray or submerged in water. No bath tub / shower only. Ensure the end of the tubing attached to the dressing is facing down so that water does not enter the top of the tube. 6. To remove Prevena dressing: press purple button to turn off device / remove the suction. Then disconnect the tubing from the pump. The fixation strips should be stretched away from the skin and the dressing lifted at one corner and peeled back until it has been fully removed. 7. After removal, it is ok to shower daily using liquid dial soap and clean wash cloth, rinse and pat dry, and leave incision open to air dry. For any concerns regarding Prevena dressing, and or wounds, please contact Yolanda Turcios, patient navigator at [phone] or notify the Cardiovascular Surgeons office at [phone]. Incentive spirometry Q1 hr x 10, while awake, also use acapella device hourly whole awake Sternal Breast Bone Precautions: NO pushing or pulling, ( pt must use sternal pillow to support chest with all activities and with coughing ( takes up to 3 months breast bone to heal ) Daily incision care: ok to shower daily, no tub bath. Wash all incisions with liquid dial soap, clean wash cloth to each site, rinse and pat dry. Observe for any signs of infection, such as drainage which is dark yellow, parekh, green or foul smelling. Immediately report to the surgeon any drainage from the chest incision, or legs, and for any abnormal drainage from the chest tube sites. Notify surgeon if any temp >101.5 degrees F. When specialty dressing removed/ or if you do not have one, continue to shower daily as above, then rinse and pat incision dry and paint with betadine daily x 5 days. Allow steri strips to fall off if you have any. Avoid lotions, creams, salves, oils, etc. for the first month Please see attached forms for additional instructions regarding post Open Heart specialty wound vacuum dressings. JEAN CARLOS or Prevena , Dressing to be removed by Nursing staff on __06/29/[address] Nair patients , please obtain CBC, BMP, PA & Lat CXR in 2 weeks, results to Dr. Nair ( prescription will be given) ( ) (Tele: [phone]) , F/U appointment: as per DC instructions: PCP in 2 weeks, CV surgeon 2 weeks, Residential Specialist 3-4 weeks For any questions regarding incisions/ dressing / meds / post op care or above Symptoms, Monday 8am-5pm Heart & Vascular Surgery Office ( Dr. Alcocer & Dr. Nair), After Hours / Nights (5pm -8am) Weekends and Holidays Please call [facility] Cardiac Intermediate Care Unit (CIC) Charge Nurse - Case Management Consult Yes - Certification I have seen patient Michael Alva on 06/22/18. My clinical findings support the need for the requested home health care services because: Deconditioned with increased weakness I certify that my clinical findings support that this patient is homebound because: Post-op weakness (1) Coronary artery disease Qualifiers: Coronary Disease-Associated Artery/Lesion type: [place] artery [place] vs. transplanted heart: [place] heart Associated angina: with unstable angina Qualified Code(s): I25.110 - Atherosclerotic heart disease of [place] coronary artery with unstable angina pectoris (2) Hyperlipidemia Qualifiers: Hyperlipidemia type: unspecified Qualified Code(s): E78.5 - Hyperlipidemia, unspecified (3) Diabetes Qualifiers: Diabetes mellitus type: type 2
[2018-06-22] MEDS ORDERED: Phenylephrine/NS 1000 MCG/10ML Syringe IV.PUSH ONE (13:25)
[2018-06-22] MEDS ORDERED: Tranexamic Acid Inj 1,000 MG/10 ML Ampul IV.PUSH ONE (13:50)
[2018-06-22] MEDS ORDERED: Heparin - SQ 10,000 UNITS/ML Vial OTHER ONE (14:36)
[2018-06-22] MEDS ORDERED: Dexmedetomidine Inj 200 MCG/2 ML Vial IV.CONT ONE (15:30)
[2018-06-22] MEDS ORDERED: Protamine Sulfate Inj 50 MG/5 ML Vial IV.CONT ONE (15:38)
[2018-06-22] MEDS ORDERED: Protamine Sulfate Inj 50 MG/5 ML Vial ONE (15:38)
[2018-06-22] MEDS ORDERED: Potassium Chlor 20 mEq Premix 20 MEQ/100 ML PIGGYBACK IV.SIG PRN ×3 (15:58)
[2018-06-22] MEDS ORDERED: Albumin Human 5% Inj 250 ML IV.SIG PRN (15:58)
[2018-06-22] MEDS ORDERED: Clevidipine Inj 25 MG/50 ML VIAL IV.CONT PRN (15:58)
[2018-06-22] MEDS ORDERED: Insulin Regular (For Infusion) 100 UNIT in Sodium Chlor 0.9% Inj 99 ML IV.CONT PRN (15:58)
[2018-06-22] MEDS ORDERED: fentaNYL Citrate Inj 100 MCG/2 ML Ampul IV.PUSH PRN (15:58)
[2018-06-22] MEDS ORDERED: Calcium Chloride Inj 1 GM in Sodium Chlor 0.9% Inj 100 ML IV.SIG PRN (15:58)
[2018-06-22] MEDS ORDERED: Calcium Chloride Inj 1 GM/10 ML Syringe IV.PUSH PRN (15:58)
[2018-06-22] MEDS ORDERED: Metoprolol Inj 5 MG/5 ML Vial IV.PUSH PRN (15:58)
[2018-06-22] MEDS ORDERED: RESP: Racemic Epinephrine 2.25% 0.5 ML Neb NEB SCH (15:58)
[2018-06-22] MEDS ORDERED: Magnesium Sulfate Inj 2 GM in Sodium Chlor 0.9% Inj 96 ML IV.SIG PRN ×4 (15:58)
[2018-06-22] MEDS ORDERED: Dexmedetomidine Inj 200 MCG in Sodium Chlor 0.9% Inj 48 ML IV.CONT PRN (15:58)
[2018-06-22] MEDS ORDERED: Post-op Orders (for Pharmacy) OTHER STA (15:58)
[2018-06-22] MEDS ORDERED: Dextrose 50% in Water 50 ML Vial IV.PUSH PRN (15:58)
--- NOTE | 2018-06-22 16:07 | P.OP ---
- Preoperative Diagnosis (1) Unstable angina (2) Coronary artery disease - Postoperative Diagnosis (1) Coronary artery disease (2) Unstable angina Date of procedure: 06/22/18 Procedure: CABG x 2 SALAZAR to LAD - good SVG to PDA - fair EVH Anesthesia: CATHERINE Surgeon: Mary Nair MD Television Presenter: Ron Farrell Pathology: none sent Operation and Findings: The risks, benefits, complications, treatment options, and expected outcomes were discussed with the patient. The possibilities of reaction to medication, pulmonary aspiration, perforation of viscus, bleeding, recurrent infection, the need for additional procedures, failure to diagnose a condition, and creating a complication requiring transfusion or operation were discussed with the patient. The patient concurred with the proposed plan, giving informed consent. The site of surgery properly noted/marked. The patient was taken to Operating Room, identified as Michael Alva and the procedure verified as CABG, EVH. A Time Out was held and the above information confirmed. Standard monitoring lines and Lozada catheter were placed. General anesthesia was induced. The patient was prepped and draped in a sterile fashion. A median sternotomy was performed and electrocautery was used to obtain hemostasis. The left internal mammary artery was procured as a pedicle from the 7th rib to the 1st rib in the usual manner. Simultaneously left greater saphenous vein was procured from the left leg using a minimally invasive endoscopic technique. The vein was prepared for anastomosis and the leg wound was irrigated and closed in 2 layers. The pericardium was opened and a pericardial sling was created using interrupted 0 silk sutures. The patient was heparinized for cardiopulmonary bypass and the distal mammary pedicle was instrumented for anastomosis. The heart was instrumented for cardiopulmonary bypass in the usual manner. Antegrade blood cardioplegia was employed. The patient was placed on cardiopulmonary bypass. An aortic cross-clamp was applied and the heart was arrested using cold blood cardioplegia. Antegrade cardioplegia was administered after he each anastomosis. After adequate arrest, the distal right coronary circulation was investigated and the PDA was opened with a Purcell blade and found to be a 1 millimeter fair target. Saphenous vein was approximated to the PDA artery using a running 7 0 Prolene suture. The graft was measured for length and orientation and suspended from the pericardium. The distal LAD was opened with a Purcell blade and found to be a 1.5 millimeter good target. The left internal mammary artery was approximated to the LAD using a running 7 0 Prolene suture. The pedicle was attached to the epicardium using interrupted 5 0 silk suture. The patient was systemically rewarmed and received a hotshot dose of warm blood cardioplegia. The aorta was vented and the proximal anastomosis to the PDA graft was accomplished using a running 5 0 Prolene suture after creating an aortotomy was a 5 millimeter punch. The cross-clamp was removed and all proximal and distal anastomoses were examined for hemostasis. The patient was weaned from cardiopulmonary bypass. Protamine was given. There was no adverse reaction. Decannulation was carried out without incident. Wound was checked for hemostasis which was obtained using electrocautery. A 36 [place] mediastinal and 32 [place] left pleural chest tubes were placed and secured to the skin with 0 silk suture. The sternum was closed with stainless steel wire. The fascia was closed with 1. PDS. The subcutaneous tissue was closed using a running 2-0 Vicryl suture. The skin was closed with 4-0 Monocryl. Sterile dressings were placed. At the end of the operation, all sponge, instruments, and needle counts were correct. The patient was transferred to the CVICU in stable condition. Findings: Small friable PDA XC: 30 min CPB: 38 min Drains: mediastinal x 1 pleural x 1 Complications: none
[2018-06-22] MEDS ORDERED: fentaNYL Citrate Inj 250 MCG/5 ML Ampul ONE (16:52)
[2018-06-22] MEDS: Amiodarone 200 MG Tablet PO SCH (22:47)
[2018-06-23] MEDS: Amiodarone 200 MG Tablet PO SCH ×3 (05:04→21:06)
[2018-06-23 05:10] LABS: Hematocrit 37.2 % (39.0-51.0); Hemoglobin 12.5 gm/dL (13.0-17.0); Mean Corpuscular HGB Conc 33.5 % (32.0-36.0); Mean Corpuscular Volume 89.4 fL (80.0-100.0); Mean Platelet Volume 9.3 fL (7.0-11.0); Platelet Count 151 th/mm3 (150-450); Red Blood Count 4.16 mil/mm3 (4.50-5.90); Red Cell Distribution Width 13.2 % (11.6-17.2); White Blood Count 16.4 th/mm3 (4.0-11.0)
[2018-06-23 05:33] LABS: Carbon Dioxide 27.5 meq/L (21.0-32.0); Magnesium 2.3 mg/dL (1.5-2.5); Potassium 4.4 meq/L (3.5-5.1)
[2018-06-23] MEDS: Glimepiride 2 MG Tablet PO SCH (06:36)
[2018-06-23] MEDS: Polyethylene Glycol 3350 17 GM Packet PO SCH (08:29)
[2018-06-23] MEDS: Mupirocin 2% Nasal Oint Topical Syringe EACH NARE SCH (08:31)
[2018-06-23] MEDS: Insulin NovoLOG Aspart Correctional Sugar Inj SQ SCH ×4 (08:34→22:37)
[2018-06-23] MEDS: Sod Chloride 0.9% Inj 1,000 ML IV.CONT SCH ×2 (08:38→17:58)
[2018-06-23] MEDS ORDERED: Bisacodyl 10 MG Supp RECTAL PRN (10:15)
--- NOTE | 2018-06-23 10:22 | P.PNCV ---
- Note CVT: Post Op Day #: 1 Subjective/Hospital Course: A 77-year-old male patient of Dr. Antwan Mann and also Dr. Self who is known to their [facility] with history of coronary artery disease. He has been experiencing some chest pain, midsternal, radiating to both arms off and on for the past month mainly with exertion, describes it as somewhat feeling like indigestion. He was seen in the office 06/12/2018, and then was brought in for elective cardiac catheterization. Cardiac catheterization showed an ejection fraction of 50%, 30% left main, proximal LAD 90%, the RCA 100%. We were consulted to evaluate for coronary artery bypass grafting. PAST MEDICAL HISTORY: Includes coronary artery disease, ischemic cardiomyopathy. Prior [place], diabetes mellitus type 2, hyperlipidemia. Apparently, he was a nonresponder to Plavix. History of pneumothorax at age 31. He had a chest tube placed back when he had the pneumothorax in 1971. He also has 2 cardiac stents. 06/21 pt doing well for surgery in am 06/22 no chest pain last night for surgery today 06/23/18 Doing well s/p CABG. No complaints. Objective: Vital Signs - 24 hr 06/22/18 10:45 06/22/18 11:00 06/22/18 12:00 Temperature 98.3 F Pulse Rate 66 65 62 Respiratory Rate 16 Blood Pressure 107/69 Pulse Oximetry 95 06/22/18 16:25 06/22/18 16:32 06/22/18 17:00 Temperature 97.5 F L Pulse Rate 65 Respiratory Rate 10 L Blood Pressure Pulse Oximetry 95 06/22/18 17:18 06/22/18 18:00 06/22/18 18:48 Temperature 97.6 F Pulse Rate 69 Respiratory Rate 10 L 12 Blood Pressure 108/53 L Pulse Oximetry 97 97 98 06/22/18 19:00 06/22/18 20:00 06/22/18 22:22 Temperature 97.5 F L Pulse Rate 63 70 Respiratory Rate 16 Blood Pressure 120/62 Pulse Oximetry 96 98 06/22/18 23:00 06/23/18 00:55 06/23/18 03:00 Temperature 97.6 F 97.5 F L Pulse Rate 74 58 L Respiratory Rate 14 14 14 Blood Pressure 114/64 122/63 Pulse Oximetry 99 99 06/23/18 03:37 06/23/18 04:33 06/23/18 07:00 Temperature 97.5 F L Pulse Rate 72 75 64 Respiratory Rate 18 16 Blood Pressure 101/44 L Pulse Oximetry 96 06/23/18 09:24 Temperature Pulse Rate 81 Respiratory Rate 17 Blood Pressure Pulse Oximetry 96 Labs: Laboratory Results - last 12 hr 06/22/18 06/23/18 06/23/18 22:46 01:11 02:18 WBC RBC Hgb Hct MCV MCH MCHC RDW Plt Count MPV Sodium Potassium Chloride Carbon Dioxide Anion Gap BUN Creatinine Estimated GFR POC Glucose 96 144 H 189 H Random Glucose Calcium Magnesium 06/23/18 06/23/18 06/23/18 03:47 04:25 04:25 WBC 16.4 H RBC 4.16 L Hgb 12.5 L Hct 37.2 L MCV 89.4 MCH 30.0 MCHC 33.5 RDW 13.2 Plt Count 151 D MPV 9.3 Sodium 142 Potassium 4.4 Chloride 106 Carbon Dioxide 27.5 Anion Gap 9 BUN 18 Creatinine 0.99 Estimated GFR 73 L POC Glucose 108 Random Glucose 119 H Calcium 8.0 L Magnesium 2.3 06/23/18 06/23/18 06/23/18 04:28 05:49 06:28 WBC RBC Hgb Hct MCV MCH MCHC RDW Plt Count MPV Sodium Potassium Chloride Carbon Dioxide Anion Gap BUN Creatinine Estimated GFR POC Glucose 119 H 117 H 111 H Random Glucose Calcium Magnesium 06/23/18 06/23/18 06/23/18 07:19 08:27 09:42 WBC RBC Hgb Hct MCV MCH MCHC RDW Plt Count MPV Sodium Potassium Chloride Carbon Dioxide Anion Gap BUN Creatinine Estimated GFR POC Glucose 102 113 H 184 H Random Glucose Calcium Magnesium Result Diagrams: 06/23/18 04:25 06/23/18 04:25 Imaging: Carotid Doppler Study 06/19/18 00:00 CONCLUSION: 1. Right Internal Carotid Artery: Mild visible plaque without hemodynamically significant stenosis. 2. Left Internal Carotid Artery: Mild visible plaque without hemodynamically significant stenosis. Lower Extremity Ultrasound 06/19/18 00:00 CONCLUSION: 1. Several lower extremity veins not visualized as above. Otherwise measured venous caliber is within normal limits. Venous Doppler Study 06/19/18 00:00 CONCLUSION: 1. The study is negative for bilateral lower extremity deep venous thrombosis. Chest X-Ray 06/23/18 05:00 CONCLUSION: 1. Improving bibasilar consolidation, currently mild. 2. Interim extubation and nasogastric tube removal. 3. Mediastinal drain, left chest tube and right IJ central venous catheter remain. No pneumothorax. Cardiovascular: RRR Telemetry: NSR Pulmonary: CTA GI/: NABS Incision: dry and intact CT: 260ml since OR - Plan (1) Coronary artery disease (2) Hyperlipidemia (3) Diabetes Transfer to stepdown Advance diet Continue chest tubes Remove hartman Encourage ambulation/PT Restart DM meds, sliding scale insulin (1) Coronary artery disease Qualifiers: Coronary Disease-Associated Artery/Lesion type: [place] artery [place] vs. transplanted heart: [place] heart Associated angina: with unstable angina Qualified Code(s): I25.110 - Atherosclerotic heart disease of [place] coronary artery with unstable angina pectoris (2) Hyperlipidemia Qualifiers: Hyperlipidemia type: unspecified Qualified Code(s): E78.5 - Hyperlipidemia, unspecified (3) Diabetes Qualifiers: Diabetes mellitus type: type 2
[2018-06-23] MEDS ORDERED: Insulin Detemir Inj 1,000 UNIT/10 ML Vial SQ ONE (10:30)
[2018-06-23] MEDS ORDERED: Non-Formulary Drug (Sitagliptin-Metformin [Janumet] 1 TAB) PO SCH (10:30)
[2018-06-23] MEDS: Docusate Sodium 100 MG Capsule PO SCH (20:38)
[2018-06-24] MEDS: Insulin NovoLOG Aspart Correctional Sugar Inj SQ SCH ×6 (01:40→20:45)
[2018-06-24] MEDS: Sod Chloride 0.9% Inj 1,000 ML IV.CONT SCH ×2 (05:15→15:35)
[2018-06-24] MEDS: Amiodarone 200 MG Tablet PO SCH (05:21)
[2018-06-24 05:34] LABS: Baso % (Auto) 0.2 % (0.0-2.0); Eos # (Auto) 0.1 th/mm3 (0.0-0.4); Eos % (Auto) 0.3 % (0.0-4.0); Hematocrit 34.6 % (39.0-51.0); Hemoglobin 11.5 gm/dL (13.0-17.0); Lymph # (Auto) 1.8 th/mm3 (1.0-4.8); Lymph % (Auto) 9.7 % (9.0-44.0); Mean Corpuscular HGB Conc 33.3 % (32.0-36.0); Mean Corpuscular Hemoglobin 30.2 pg (27.0-34.0); Mean Corpuscular Volume 90.7 fL (80.0-100.0); Mean Platelet Volume 9.4 fL (7.0-11.0); Mono # (Auto) 1.8 th/mm3 (0.0-0.9); Mono % (Auto) 9.6 % (0.0-8.0); Neut # (Auto) 14.7 th/mm3 (1.8-7.7); Neut % (Auto) 80.2 % (16.0-70.0); Platelet Count 159 th/mm3 (150-450); Red Blood Count 3.81 mil/mm3 (4.50-5.90); Red Cell Distribution Width 13.8 % (11.6-17.2); White Blood Count 18.3 th/mm3 (4.0-11.0)
[2018-06-24 05:54] LABS: Calcium 7.6 mg/dL (8.5-10.1); Carbon Dioxide 27.2 meq/L (21.0-32.0); Magnesium 2.1 mg/dL (1.5-2.5); Potassium 4.7 meq/L (3.5-5.1)
[2018-06-24] MEDS: Polyethylene Glycol 3350 17 GM Packet PO SCH (08:28)
[2018-06-24] MEDS: Glimepiride 2 MG Tablet PO SCH (08:29)
[2018-06-24] MEDS: Multivitamin/Minerals Therapeutic Tablet PO SCH (08:30)
[2018-06-24] MEDS: Docusate Sodium 100 MG Capsule PO SCH ×2 (08:30→20:41)
--- NOTE | 2018-06-24 08:50 | P.PNCV ---
- Note CVT: Post Op Day #: 2 Subjective/Hospital Course: A 77-year-old male patient of Dr. Antwan Mann and also Dr. Self who is known to their [facility] with history of coronary artery disease. He has been experiencing some chest pain, midsternal, radiating to both arms off and on for the past month mainly with exertion, describes it as somewhat feeling like indigestion. He was seen in the office 06/12/2018, and then was brought in for elective cardiac catheterization. Cardiac catheterization showed an ejection fraction of 50%, 30% left main, proximal LAD 90%, the RCA 100%. We were consulted to evaluate for coronary artery bypass grafting. PAST MEDICAL HISTORY: Includes coronary artery disease, ischemic cardiomyopathy. Prior [place], diabetes mellitus type 2, hyperlipidemia. Apparently, he was a nonresponder to Plavix. History of pneumothorax at age 31. He had a chest tube placed back when he had the pneumothorax in 1971. He also has 2 cardiac stents. 06/21 pt doing well for surgery in am 06/22 no chest pain last night for surgery today 06/23/18 Doing well s/p CABG. No complaints. 06/24/18 No complaints. BP a little low this morning Objective: Vital Signs - 24 hr 06/23/18 09:24 06/23/18 10:36 06/23/18 11:00 Temperature Pulse Rate 81 71 Respiratory Rate 17 17 14 Blood Pressure 98/60 L Pulse Oximetry 96 98 06/23/18 12:00 06/23/18 12:56 06/23/18 15:00 Temperature 97.8 F 97.6 F Pulse Rate 76 74 75 Respiratory Rate 16 15 16 Blood Pressure 81/52 L 84/58 L Pulse Oximetry 94 L 97 06/23/18 16:00 06/23/18 16:27 06/23/18 20:00 Temperature 97.6 F 98.2 F Pulse Rate 76 82 Respiratory Rate 17 17 18 Blood Pressure 99/59 L 101/68 Pulse Oximetry 97 97 06/23/18 22:10 06/24/18 00:00 06/24/18 04:00 Temperature 98.4 F 98.1 F Pulse Rate 74 73 Respiratory Rate 18 16 Blood Pressure 99/58 L 93/54 L Pulse Oximetry 96 97 98 06/24/18 05:55 06/24/18 07:00 06/24/18 07:14 Temperature 97.7 F Pulse Rate 76 Respiratory Rate 16 Blood Pressure 90/65 L Pulse Oximetry 95 91 L 96 Labs: Laboratory Results - last 12 hr 06/23/18 06/24/18 06/24/18 22:21 01:33 05:15 WBC 18.3 H RBC 3.81 L Hgb 11.5 L Hct 34.6 L MCV 90.7 MCH 30.2 MCHC 33.3 RDW 13.8 Plt Count 159 MPV 9.4 Neut % (Auto) 80.2 H Lymph % (Auto) 9.7 [place] % (Auto) 9.6 H Eos % (Auto) 0.3 Baso % (Auto) 0.2 Neut # (Auto) 14.7 H Lymph # (Auto) 1.8 [place] # (Auto) 1.8 H Eos # (Auto) 0.1 Baso # (Auto) 0.0 WBC Differential . Differential Comment Auto diff final Sodium Potassium Chloride Carbon Dioxide Anion Gap BUN Creatinine Estimated GFR POC Glucose 112 H 116 H Random Glucose Calcium Magnesium 06/24/18 06/24/18 05:15 05:26 WBC RBC Hgb Hct MCV MCH MCHC RDW Plt Count MPV Neut % (Auto) Lymph % (Auto) [place] % (Auto) Eos % (Auto) Baso % (Auto) Neut # (Auto) Lymph # (Auto) [place] # (Auto) Eos # (Auto) Baso # (Auto) WBC Differential Differential Comment Sodium 141 Potassium 4.7 Chloride 106 Carbon Dioxide 27.2 Anion Gap 8 BUN 21 H Creatinine 1.14 Estimated GFR 62 L POC Glucose 145 H Random Glucose 149 H Calcium 7.6 L Magnesium 2.1 Result Diagrams: 06/24/18 05:15 06/24/18 05:15 Imaging: Carotid Doppler Study 06/19/18 00:00 CONCLUSION: 1. Right Internal Carotid Artery: Mild visible plaque without hemodynamically significant stenosis. 2. Left Internal Carotid Artery: Mild visible plaque without hemodynamically significant stenosis. Lower Extremity Ultrasound 06/19/18 00:00 CONCLUSION: 1. Several lower extremity veins not visualized as above. Otherwise measured venous caliber is within normal limits. Venous Doppler Study 06/19/18 00:00 CONCLUSION: 1. The study is negative for bilateral lower extremity deep venous thrombosis. Chest X-Ray 06/23/18 05:00 CONCLUSION: 1. Improving bibasilar consolidation, currently mild. 2. Interim extubation and nasogastric tube removal. 3. Mediastinal drain, left chest tube and right IJ central venous catheter remain. No pneumothorax. Cardiovascular: RRR Telemetry: NSR Pulmonary: CTA GI/: NABS Incision: dry and intact CT: 75ml/24hrs - Plan (1) Coronary artery disease (2) Hyperlipidemia (3) Diabetes Remove chest tubes Hold coreg due to BP D/C amiodarone Encourage ambulation discharge planning (1) Coronary artery disease Qualifiers: Coronary Disease-Associated Artery/Lesion type: [place] artery [place] vs. transplanted heart: [place] heart Associated angina: with unstable angina Qualified Code(s): I25.110 - Atherosclerotic heart disease of [place] coronary artery with unstable angina pectoris (2) Hyperlipidemia Qualifiers: Hyperlipidemia type: unspecified Qualified Code(s): E78.5 - Hyperlipidemia, unspecified (3) Diabetes Qualifiers: Diabetes mellitus type: type 2
--- NOTE | 2018-06-24 11:51 | ECG ---
Date Performed: 06/23/2018 Time Performed: 16:43:12 PTAGE: 77 years EKG: Sinus rhythm Leftward axis Inferior infarct - age undetermined Since the previous tracing, no significant change noted Abnormal ECG PREVIOUS TRACING : 06/19/2018 12.18 DOCTOR: Jair Fermin Interpretating Date/Time 06/24/2018 11:48:26
[2018-06-25] MEDS: Sod Chloride 0.9% Inj 1,000 ML IV.CONT SCH ×2 (01:01→13:49)
[2018-06-25] MEDS: Glimepiride 2 MG Tablet PO SCH (06:06)
[2018-06-25] MEDS: Polyethylene Glycol 3350 17 GM Packet PO SCH (09:08)
[2018-06-25] MEDS: Multivitamin/Minerals Therapeutic Tablet PO SCH (09:08)
[2018-06-25] MEDS: Docusate Sodium 100 MG Capsule PO SCH (09:09)
[2018-06-25] MEDS: Insulin NovoLOG Aspart Correctional Sugar Inj SQ SCH ×2 (09:10→12:54)
[2018-06-25 12:05] LABS: Hematocrit 33.4 % (39.0-51.0); Hemoglobin 11.2 gm/dL (13.0-17.0); Mean Corpuscular HGB Conc 33.6 % (32.0-36.0); Mean Corpuscular Hemoglobin 30.2 pg (27.0-34.0); Mean Corpuscular Volume 89.7 fL (80.0-100.0); Mean Platelet Volume 10.1 fL (7.0-11.0); Platelet Count 142 th/mm3 (150-450); Red Blood Count 3.72 mil/mm3 (4.50-5.90); Red Cell Distribution Width 13.7 % (11.6-17.2); White Blood Count 11.5 th/mm3 (4.0-11.0)
[2018-06-25 12:29] LABS: Carbon Dioxide 28.3 meq/L (21.0-32.0); Potassium 4.4 meq/L (3.5-5.1)
--- NOTE | 2018-06-25 13:04 | P.DS ---
Date of admission: 06/19/18 14:29 Primary care physician: Antwan Roth Attending physician on discharge: Mary Nair Anticipated date of discharge: 06/25/18 Brief History from admission: A 77-year-old male patient of Dr. Antwan Mann and also Dr. Self who is known to their [facility] with history of coronary artery disease. He has been experiencing some chest pain, midsternal, radiating to both arms off and on for the past month mainly with exertion, describes it as somewhat feeling like indigestion. He was seen in the office 06/12/2018, and then was brought in for elective cardiac catheterization. Cardiac catheterization showed an ejection fraction of 50%, 30% left main, proximal LAD 90%, the RCA 100%. We were consulted to evaluate for coronary artery bypass grafting. PAST MEDICAL HISTORY: Includes coronary artery disease, ischemic cardiomyopathy. Prior [place], diabetes mellitus type 2, hyperlipidemia. Apparently, he was a nonresponder to Plavix. History of pneumothorax at age 31. He had a chest tube placed back when he had the pneumothorax in 1971. He also has 2 cardiac stents. Patient update on day of discharge: pt stable CBC rechecked / WBC down to 11 no fevers, on room air CXR stable post chest tube removal stable for dc home on ASA, statin and BB DS: Diagnosis - Discharge Diagnosis (1) Coronary artery disease Status: Chronic (2) Hyperlipidemia Status: Chronic (3) Diabetes Status: Acute DS: Medications - Discharge Medications Prescriptions: docusate sodium [DOK] 100 mg PO BID #60 cap ldsiuvxh-ozdh-AZ-calcium-mins [Thera M Plus (ferrous fumarat)] 1 tab PO DAILY # 30 tab oxycodone-acetaminophen 1 tab PO Q4H PRN #40 tab PRN Reason: Pain Scale 1 To 5 DS: Summary Hospital Course: 06/21 pt doing well for surgery in am 06/22 no chest pain last night for surgery today 06/23/18 Doing well s/p CABG. No complaints. 06/24/18 No complaints. BP a little low this morning - Time Spent with Patient Total time spent providing and/or coordinating discharge services: Greater than 30 minutes Exam Vital signs: Vital Signs 06/24/18 13:00 06/24/18 14:00 06/24/18 15:00 Temperature 97.5 F L Pulse Rate 74 76 74 Respiratory Rate 16 Blood Pressure 155/75 H Pulse Oximetry 98 06/24/18 16:00 06/24/18 17:00 06/24/18 18:00 Temperature Pulse Rate 74 78 80 Respiratory Rate Blood Pressure Pulse Oximetry 06/24/18 19:00 06/24/18 19:58 06/24/18 20:00 Temperature 97.8 F Pulse Rate 74 81 Respiratory Rate 20 Blood Pressure 112/69 Pulse Oximetry 93 L 92 L 06/24/18 21:00 06/24/18 22:00 06/24/18 23:00 Temperature 98.4 F Pulse Rate 78 78 81 Respiratory Rate 20 Blood Pressure 113/63 Pulse Oximetry 93 L 06/25/18 00:00 06/25/18 00:57 06/25/18 02:00 Temperature Pulse Rate 76 77 73 Respiratory Rate Blood Pressure Pulse Oximetry 06/25/18 03:00 06/25/18 04:00 06/25/18 05:00 Temperature 98.6 F Pulse Rate 76 84 76 Respiratory Rate 22 Blood Pressure 91/57 L Pulse Oximetry 93 L 06/25/18 06:00 06/25/18 07:00 06/25/18 08:19 Temperature 98.2 F Pulse Rate 75 70 Respiratory Rate 16 Blood Pressure 102/56 L Pulse Oximetry 95 94 L 06/25/18 11:00 06/25/18 12:00 Temperature 98 F Pulse Rate 72 72 Respiratory Rate 17 Blood Pressure 88/53 L Pulse Oximetry 98 Intake & Output 06/24/18 06/25/18 06/25/18 18:59 06:59 18:59 Intake Total 480 / 480 480 / 480 Output Total 550 / 550 600 / 600 Balance -70 / -70 -120 / -120 Weight 71.8 kg Intake: Oral 480 / 480 480 / 480 Output: Urine 550 / 550 600 / 600 Other: Date of Last Bowel Movement 06/21/18 06/21/18 06/25/18 - Constitutional no acute distress - Routine HEENT Exam Head: Present: normocephalic, atraumatic Eye: Present: EOMI, PERRL, normal accommodation - Routine Neck Exam Present: supple, full ROM - Routine Chest/Breast/Axilla Exam Chest wall: Present: tenderness - Routine Respiratory Exam Present: CTA bilaterally - Routine Cardiovascular Exam Present: RRR, S1, S2 - Routine Abdominal Exam Present: soft, normoactive bowel sounds - Routine Extremities Exam Present: full ROM, pulses intact, normal capillary refill - Routine Skin Exam Present: wounds Comments: prevena dressing to chest , incision intact to left leg Results Procedures completed during hospitalization: Date of procedure: 06/22/18 Procedure: CABG x 2 SALAZAR to LAD - good SVG to PDA - fair LEVH Completed studies during hospitalization: Date of procedure: 06/22/18 Procedure: CABG x 2 SALAZAR to LAD - good SVG to PDA - fair L EVH Labs on day of discharge: Labs from last 24 hours 06/25/18 06/25/18 06/25/18 11:12 10:30 10:30 WBC 11.5 H RBC 3.72 L Hgb 11.2 L Hct 33.4 L MCV 89.7 MCH 30.2 MCHC 33.6 RDW 13.7 Plt Count 142 L MPV 10.1 Sodium 141 Potassium 4.4 Chloride 103 Carbon Dioxide 28.3 Anion Gap 10 BUN 22 H Creatinine 0.97 Estimated GFR 75 L POC Glucose 183 H Random Glucose 154 H Calcium 8.0 L Magnesium 2.0 MTS Gel Crossmatch 06/24/18 06/24/18 06/22/18 19:44 16:52 08:31 WBC RBC Hgb Hct MCV MCH MCHC RDW Plt Count MPV Sodium Potassium Chloride Carbon Dioxide Anion Gap BUN Creatinine Estimated GFR POC Glucose 188 H 146 H Random Glucose Calcium Magnesium MTS Gel Crossmatch See Detail - Impressions ITS Impressions Carotid Doppler Study 06/19/18 00:00 CONCLUSION: 1. Right Internal Carotid Artery: Mild visible plaque without hemodynamically significant stenosis. 2. Left Internal Carotid Artery: Mild visible plaque without hemodynamically significant stenosis. Lower Extremity Ultrasound 06/19/18 00:00 CONCLUSION: 1. Several lower extremity veins not visualized as above. Otherwise measured venous caliber is within normal limits. Venous Doppler Study 06/19/18 00:00 CONCLUSION: 1. The study is negative for bilateral lower extremity deep venous thrombosis. Chest X-Ray 06/25/18 00:00 CONCLUSION: 1. No significant pneumothorax following removal of mediastinal drain and left- sided chest tube. 2. Persistent bibasilar atelectasis. Discharge Plan - Discharge Disposition Patient Disposition: /Home Health Service - Discharge Condition Condition: Good - Discharge Order Discharge Orders: Discharge Order (Routine); Ordered 06/25/18 Ordered By: Joy Gallardo - Discharge Details Anticipated Discharge Date: 06/25/18 - Physicians Team Primary Care Provider: Antwan Roth Attending Provider: Robson Self Other Providers: Mary Nair MD ; [facility] - Rxs /Orders / Referrals /Forms Prescriptions: New docusate sodium [DOK] 100 mg Capsule 100 mg PO BID Qty: 60 RF: 0 voetsdpw-siyy-YY-calcium-mins [Thera M Plus (ferrous fumarat)] 9 mg iron-400 mcg Tablet 1 tab PO DAILY Qty: 30 RF: 2 oxycodone-acetaminophen 5-325 mg Tablet 1 tab PO Q4H PRN (Reason: Pain Scale 1 To 5) Qty: 40 RF: 0 Continue aspirin [Aspir-81] 81 mg Tablet,Delayed Release (Dr/Ec) 81 mg PO DAILY atorvastatin 40 mg Tablet 40 mg PO DAILY carvedilol 3.125 mg Tablet 3.125 mg PO BID glimepiride 2 mg Tablet 2 mg PO QAM sitagliptin-metformin [Janumet] 50-1,000 mg Tablet 1 tab PO BID Ambulatory Orders / Order Sets / DME: XR chest 2V PA&LAT (Routine) Timeframe: 2 Days Location: Determined by Patient Ordered By: Joy Gallardo Basic Metabolic Panel (Routine) Timeframe: 2 Weeks Location: Determined by Patient Ordered By: Joy Gallardo Complete Blood Count NO Diff (Routine) Timeframe: 2 Weeks Location: Determined by Patient Ordered By: Joy Gallardo Referrals: Robson Self MD [Physician] - See Instructions ( Your appointment has been scheduled for [07/26/18] at [9:45 am] If you cannot make this appointment, please call the office to reschedule ) Joy Gallardo [ADVANCE RN PRACTITIONER] - See Instructions (Your appointment has been scheduled for [07/12/18] at [11:00 am] If you cannot make this appointment, please call the office to reschedule ) Antwan Roth [Primary Care Provider] - See Instructions ( Your appointment has been scheduled for [07/04/18] at [11:00 am] If you cannot make this appointment, please call the office to reschedule ) - Discharge Instructions Patient Printed Instructions: Heart Catheterization (DC), Coronary Artery Bypass Graft (DC) Additional Instructions: PREVENA Single Use Negative Wound Therapy System Caregiver Instruction Sheet 1. A Prevena dressing system was applied to the chest incision during surgery , to promote wound healing. It works via a suction device (negative pressure wound therapy) to remove low to moderate levels of exudate (drainage) and infectious materials. We recommend that the device stay in place for up to seven days, from day of surgery. 2. Day of Surgery__/ Day of Removal ____/ 3. The dressing should only be removed by a health special needs caregiver. Please arrange removal of device to coincide with Home Health visit and or with Nursing staff at Rehab 4. If skin reddening or irritation of skin occurs, or excessive drainage, please notify the Cardiovascular Surgeons office at [phone]. 5. Light showering is permissible; however the pump should be disconnected and placed in safe location, where it will not get wet. The dressing should not be exposed to direct spray or submerged in water. No bath tub / shower only. Ensure the end of the tubing attached to the dressing is facing down so that water does not enter the top of the tube. 6. To remove Prevena dressing: press purple button to turn off device / remove the suction. Then disconnect the tubing from the pump. The fixation strips should be stretched away from the skin and the dressing lifted at one corner and peeled back until it has been fully removed. 7. After removal, it is ok to shower daily using liquid dial soap and clean wash cloth, rinse and pat dry, and leave incision open to air dry. For any concerns regarding Prevena dressing, and or wounds, please contact Yolanda Turcios, patient navigator at [phone] or notify the Cardiovascular Surgeons office at [phone]. Incentive spirometry Q1 hr x 10, while awake, also use acapella device hourly whole awake Sternal Breast Bone Precautions: NO pushing or pulling, ( pt must use sternal pillow to support chest with all activities and with coughing ( takes up to 3 months breast bone to heal ) Daily incision care: ok to shower daily, no tub bath. Wash all incisions with liquid dial soap, clean wash cloth to each site, rinse and pat dry. Observe for any signs of infection, such as drainage which is dark yellow, parekh, green or foul smelling. Immediately report to the surgeon any drainage from the chest incision, or legs, and for any abnormal drainage from the chest tube sites. Notify surgeon if any temp >101.5 degrees F. When specialty dressing removed/ or if you do not have one, continue to shower daily as above, then rinse and pat incision dry and paint with betadine daily x 5 days. Allow steri strips to fall off if you have any. Avoid lotions, creams, salves, oils, etc. for the first month Please see attached forms for additional instructions regarding post Open Heart specialty wound vacuum dressings. JEAN CARLOS or Prevena , Dressing to be removed by Nursing staff on __06/29/[address] Nair patients , please obtain CBC, BMP, PA & Lat CXR in 2 weeks, results to Dr. Nair ( prescription will be given) ( ) (Tele: [phone]) , F/U appointment: as per [place] instructions: PCP in 2 weeks, CV surgeon 2 weeks, Sports Centre Manager 3-4 weeks For any questions regarding incisions/ dressing / meds / post op care or above Symptoms, Monday 8am-5pm Heart & Vascular Surgery Office ( Dr. Alcocer & Dr. Nair), After Hours / Nights (5pm -8am) Weekends and Holidays Please call [facility] ([facility]) Charge Nurse
== END 2018-06-25 18:00 | disposition home health service (06) ==
LOC: HDOC 11:42 → HDIC 11:47 → HDOC 11:48 → HDIC 12:15 → HCIS 14:29 → HCPC 20:22 → HCVI 06-22 16:45 → HCPC 06-24 09:50
PROVIDERS: ADMIT Internal Medicine Cardiovascular Disease; ATTEND Internal Medicine Cardiovascular Disease